=== PATIENT | female | born 1980 | race Hispanic/Latino ===

== ENCOUNTER 2019-02-09 18:00 | Emergency (ER) | payer OTHER | END 2019-02-09 18:34 | disposition home or self-care (01) | LOC: EDH 18:00 | DX: J06.9 Acute upper respiratory infection, unspecified (principal) | CPT/HCPCS: 99281 ==

== ENCOUNTER 2020-09-03 17:25 | Emergency (ER) | payer OTHER ==
[~2020-09-03] VITALS: Ht 157.5 cm; Wt 67.1 kg
[2020-09-03] MEDS ORDERED: 0.9%NACL 1000ML 1,000 ML IV ONE (19:00)
[2020-09-03] MEDS ORDERED: ACETAMINOPHEN 325 MG TAB PO ONE (19:00)
[2020-09-03 20:19] LABS: BASOPHILS % (AUTO) 0.5 % (0.0-5.0); EOSINOPHILS % (AUTO) 0.5 % (0.0-8.0); HEMATOCRIT 36.4 % (36-48); LYMPHOCYTES % (AUTO) 14.3 % (21.0-51.0); MEAN CORPUSCULAR HGB CONC 32.7 g/dL (32.0-36.0); MEAN CORPUSCULAR VOLUME 88.8 fL (79-99); MONOCYTES % (AUTO) 4.6 % (3.0-13.0); NEUTROPHILS % (AUTO) 79.8 % (40.0-77.0); PLATELET COUNT (AUTO) 246 K/uL (130-400); RED CELL DISTRIBUTION WIDTH 13.4 % (11.0-15.5); WHITE BLOOD COUNT (AUTO) 10.5 K/uL (4.8-10.8)
[2020-09-03 20:22] VITALS: BP 89/60
[2020-09-03 21:07] VITALS: BP 119/53
== END 2020-09-03 21:07 | disposition home or self-care (01) ==
LOC: EDH 17:25
DX: O03.9 Complete or unspecified spontaneous abortion without complication (principal); Z3A.01 Less than 8 weeks gestation of pregnancy
CPT/HCPCS: 36415; 76801; 84702; 85025; 86900; 86901; 96360

== ENCOUNTER 2024-03-16 08:30 | Emergency (ER) | payer BC, MEDICAID ==
[~2024-03-16] VITALS: Ht 152.4 cm; Wt 67.1 kg
[2024-03-16 09:10] LABS: ADD UA MICROSCOPIC YES; APPEARANCE,URINE CLEAR (CLEAR); BILIRUBIN,URINE NEGATIVE (NEGATIVE); COLOR,URINE LIGHT-YELLOW (YELLOW); GLUCOSE, URINE (UA) NEGATIVE (NEGATIVE); KETONES,URINE NEGATIVE (NEGATIVE); LEUKOCYTE ESTERASE ,URINE 250 Leu/uL (NEGATIVE); NITRATE,URINE NEGATIVE (NEGATIVE); OCCULT BLOOD,URINE LARGE (NEGATIVE); PH,URINE 6.5 (5.0-8.0); PROTEIN,URINE 30 mg/dL (NEGATIVE); UROBILINOGEN,URINE 0.2 mg/dL (0.2-1.0)
[2024-03-16 09:17] LABS: BACTERIA,URINE FEW /HPF (None Seen); MUCUS,URINE RARE LPF (None Seen); RBC,URINE 26-50 /HPF (0-1); SQUAMOUS EPITHELIAL CELL,UR RARE /HPF (0-2); WBC,URINE 26-50 /HPF (0-1)
--- NOTE | 2024-03-16 09:59 | ERN ---
ED Note History of Present Illness Stated Complaint: DYSURIA Chief Complaint: Painful Urination Time Seen by MD: 08:35 Dictation: 43-year-old female presents to the ED for evaluation of dysuria onset last night. Patient reports frequency, abdominal cramping and nausea, but denies any fevers, vomiting or other associated symptoms at this time. Patient mentioned she took 600 mg of Motrin at 7:00 a.m.. Allergies: Coded Allergies: No Known Allergies (Unverified Allergy, Unknown, 09/03/20) Home Meds Active Scripts Nitrofurantoin Monohyd/M-Cryst (Macrobid 100 mg Capsule) 100 Mg Capsule, 1 CAP PO BID for 7 Days, #14 CAP 0 Refills Prov:EDILSON VANCE MD 03/16/24 Past Medical History Past Medical History: No Pertinent History Surgical History: None LMP: Mar 02, 2024 : 4 Para: 2 Aborts: 1 Review of System Dictation Constitutional: Negative for fever,chills, and weight loss Eyes: Negative for injury, pain,redness, and discharge ENT: Negative for injury,pain or swelling Cardiovascular: Negative for chest pain, palpitations, and edema Respiratory: Negative for shortness of breath, cough, and wheezing, Abdomen/GI: Positive for nausea,Negative for abdominal pain, vomiting, diarrhea, and constipation Back: Negative for injury and pain : Positive for dysuria, frequency MS/Extremity: Negative for injury and deformity Skin: Negative for rash, and discoloration Neuro: Negative for headache, weakness, numbness, tingling, and seizure Psych: Negative for suicide ideation, homicidal ideation, and hallucinations Initial Vital Sign VS Vital Signs Date Time Temp Pulse Resp B/P (MAP) Pulse Ox O2 Delivery O2 Flow Rate FiO2 03/16/24 08:32 97.9 76 16 129/74 98 Room Air 0 03/16/24 08:34 21 Physical Exam Dictation General: awake, alert, NAD Head/Face: Normocephalic, atraumatic Eyes: PERRL, EOMI, vision at baseline ENT: oral cavity clear, TMs clear, no signs of infection Neck: Trachea midline, supple, no nuchal rigidity Cardiovascular: RRR, normal S1/S2, No MRGs, no JVD Respiratory: CTAB, no respiratory distress, No rales or wheezes Abdomen: Soft, mild suprapubic tenderness, non-distended, normal bowel sounds, no guarding or rebound. Skin: Warm, dry, normal turgor, no rash MS/Extremity: Pulses equal, no cyanosis, neurovascular intact, FROM Neuro: COAx4, GCS 15, strength 5/5, CN 2-12 intact, normal cerebellar exam, normal gait, Psych: Normal behavior, mood, and affect normal Results (Laboratory/Radiology) Laboratory/Radiology Laboratory Tests Test 03/16/24 09:05 Urine Color LIGHT-YELLOW (YELLOW) Urine Appearance CLEAR (CLEAR) Urine pH 6.5 (5.0-8.0) Urine Specific [place] 1.020 (1.001-1.031) Urine Protein 30 mg/dL (NEGATIVE) H Urine Glucose (UA) NEGATIVE mg/dL (NEGATIVE) Urine Ketones NEGATIVE mg/dL (NEGATIVE) Urine Occult Blood LARGE (NEGATIVE) H Urine Nitrate NEGATIVE (NEGATIVE) Urine Bilirubin NEGATIVE mg/dL (NEGATIVE) Urine Urobilinogen 0.2 mg/dL (0.2-1.0) Urine Leukocyte Esterase 250 Tessie/uL (NEGATIVE) H Urine RBC 26-50 /HPF (0-1) H Urine WBC 26-50 /HPF (0-1) H Urine Squamous Epithelial Cells RARE /HPF (0-2) Urine Bacteria FEW /HPF (None Seen) Labs Reviewed?: Yes ED Course ED Course Orders Procedure Category Date Status Time Urinalysis Profile LAB 03/16/24 Complete 08:38 Culture Urine TEE 03/16/24 In Process 09:10 Ceftriaxone 1g Vial PHA 03/16/24 Complete (Rocephine 1g Inj) 10:00 Current Medications Medications (Trade) Dose Ordered Sig/[place] Route PRN Reason Start Time Stop Time Status Last Admin Dose Admin Ceftriaxone Sodium (ROCEphine 1G INJ) 1 gm ONCE ONCE IM 03/16/24 10:00 03/16/24 10:01 DC Vital Signs Date Time Temp Pulse Resp B/P (MAP) Pulse Ox O2 Delivery O2 Flow Rate FiO2 03/16/24 08:34 97.9 73 16 129/74 97 Room Air* 0 21 03/16/24 08:32 97.9 76 16 129/74 98 Room Air 0 Medical Decision Making MDM MDM: Differential diagnosis: UTI, abdominal cramping Risk of complication and/or morbidity or mortality of patient management: None Need for hospitalization: Patient does not meet criteria for hospitalization. Need for emergency major/minor surgery: No There are no social concerns with this patient. Prescription drug management Prescriptions will include symptomatic care I independently interpreted the test that were performed, results were reviewed by me and considered findings on radiology if ordered. DX & DISP Disposition: Discharge Departure Impression: Primary Impression: Hemorrhagic cystitis Additional Impression: UTI (urinary tract infection) Condition: Stable Scripts Nitrofurantoin Monohyd/M-Cryst (Macrobid 100 mg Capsule) 100 Mg Capsule 1 CAP PO BID for 7 Days, #14 CAP 0 Refills Prov: EDILSON VANCE MD 03/16/24 Referrals: JOSÉ MIGUEL HARPER Jr., MD (PCP) EDILSON VANCE MD Mar 16, 2024 09:59
[2024-03-16] MEDS ORDERED: NITR100C4 PO (10:02)
[2024-03-16 11:25] VITALS: BP 129/74; PULSE 76; RESP 16; TEMP 97.8; O2SAT 98
[2024-03-16] MEDS: cefTRIAXone 1G VIAL IM ONE (12:08)
== END 2024-03-16 12:14 | disposition home or self-care (01) ==
LOC: EDH 08:30
DX: N30.91 Cystitis, unspecified with hematuria (principal); Z79.899 Other long term (current) drug therapy
CPT/HCPCS: 99284; 87086; 81001; 96372; J0696

== ENCOUNTER 2024-10-09 16:02 | Emergency (ER) | payer BC ==
[~2024-10-09] VITALS: Ht 154.9 cm; Wt 73.3 kg
[~2024-10-09 16:02] MED LIST: NITR100C4 PO
--- NOTE | 2024-10-09 16:18 | EKG ---
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
--- NOTE | 2024-10-09 16:31 | ERN ---
ED Note History of Present Illness Stated Complaint: DIZZY Chief Complaint: Dizzy/Light Headed Time Seen by MD: 16:17 Dictation: SAY 44-YEAR-OLD FEMALE COMING IN TODAY WITH LEFT ANTERIOR CHEST PAIN THAT DOES NOT RADIATE ONSET WAS 5-6 HOURS PRIOR TO ARRIVAL. SHE HAS NO SOB NO JAW PAIN NO ARM PAIN. DENIES ANY HISTORY OF CAD. SHE STATES SHE DOES SEE HER DOCTOR AT [facility] AND HAD LABS DRAWN THREE MONTHS AGO, WAS TOLD HER TRIGLYCERIDES AND HER GLUCOSE WAS ELEVATED. SHE STATES SHE DID NOT FOLLOW UP WITH HER PRIMARY CARE DOCTOR IN [facility]. Allergies: Coded Allergies: No Known Allergies (Unverified Allergy, Unknown, 09/03/20) Home Meds Active Scripts Nitrofurantoin Monohyd/M-Cryst (Macrobid 100 mg Capsule) 100 Mg Capsule, 1 CAP PO BID for 7 Days, #14 CAP 0 Refills Prov:EDILSON VANCE MD 03/16/24 Past Medical History Past Medical History: No Pertinent History Surgical History: None : 4 Para: 2 Aborts: 1 RN Note Reviewed/Agreed w/PFSH: Yes Review of System Dictation CONSTITUTIONAL: NEGATIVE EXCEPT FOR HPI HEAD/FACE: NEGATIVE EXCEPT FOR HPI EENT: NEGATIVE EXCEPT FOR HPI RESPIRATORY: NEGATIVE EXCEPT FOR HPI LEFT ANTERIOR CHEST PAIN GASTROINTESTINAL/ABDOMINAL: NEGATIVE EXCEPT FOR HPI GENITOURINARY: NEGATIVE EXCEPT FOR HPI MUSCULOSKELETAL: NEGATIVE EXCEPT FOR HPI INTEGUMENTARY: NEGATIVE EXCEPT FOR HPI NEUROLOGICAL/PSYCH: NEGATIVE EXCEPT FOR HPI HEMATOLOGIC/LYMPHATIC: NEGATIVE EXCEPT FOR HPI ALL SYSTEMS NEGATIVE, EXCEPT NOTED ABOVE. 13 POINT REVIEW OF SYSTEMS ASSESSED AND ALL NEGATIVE EXCEPT FOR ABOVE. Initial Vital Sign VS Vital Signs Date Time Temp Pulse Resp B/P (MAP) Pulse Ox O2 Delivery O2 Flow Rate FiO2 10/09/24 16:04 97.7 74 16 127/66 97 Room Air 0 10/09/24 16:08 21 Physical Exam Dictation VITAL SIGNS REVIEWED GENERAL APPEARANCE: ALERT, ORIENTED X 3, NO ACUTE DISTRESS, WELL DEVELOPED, NOURISHED. NO PAIN AT THIS HEAD AND FACE: NON-TRAUMATIC. EYES: PERRL, PINK CONJUNCTIVAS, EYELID NO TRAUMA, ANTERIOR CHAMBER WITH ARCUS SENILIS. EARS: PINNAS INTACT AND NO SIGNS OF TRAUMA OR ERYTHEMA EAR CANALS CLEAR AND NO DISCHARGE TM NO ERYTHEMA NOSE: NO DISCHARGE, NO BLEEDING. OROPHARYNX: MOUTH NORMAL, TONGUE PINK, PHARYNX CLEAR,NO ERYTHEMA, TONSILS NO EXUDATES, NO ABSCESSES NOTED, MUCOUS MEMBRANE MOIST NECK: SUPPLE, NON-TENDER, NO THYROMEGALY, NO MASSES, NO JVD, NO BRUITS BREAST:DEFERRED CHEST:NO TENDERNESS, NO CREPITUS, NO PARADOXICAL MOVEMENT, NO RETRACTIONS LUNGS:CLEAR, WELL-VENTILATED, SYMMETRIC, NO RALES, NO WHEEZING, NO RHONCHI, NO STRIDOR, GOOD BREATH SOUNDS BILATERALLY HEART: REGULAR RATE, REGULAR RHYTHM, NO MURMUR, NO GALLOPS VASCULAR: NO PERIPHERAL EDEMA, ABDOMEN: SOFT, POSITIVE BOWEL SOUNDS, NONDISTENDED, NO GUARDING, NONTENDER, NO REBOUND, NO MASSES NO HEPATOMEGALY, NO SPLENOMEGALY, NO DEMARCO'S SIGN, NO HERNIAS. RECTAL: DEFERRED GENITAL: DEFERRED NEUROLOGICAL: NORMAL SPEECH, MOTOR FUNCTION INTACT, SENSORY FUNCTION INTACT MUSCULOSKELETAL: NECK NONTENDER, FULL RANGE OF MOTION, BACK NONTENDER, FULL RANGE OF MOTION, EXTREMITIES: NONTENDER, FULL RANGE OF MOTION SKIN: COLOR PINK, DRY, NO TURGOR, NO RASH, NO LACERATIONS, NO ABRASIONS, NO CONTUSIONS. LYMPHATIC: DEFERRED Results (Laboratory/Radiology) Laboratory/Radiology Laboratory Tests Test 10/09/24 16:26 White Blood Count 10.8 K/uL (4.8-10.8) Red Blood Count 4.34 MIL/uL (4.00-5.50) Hemoglobin 12.6 g/dL (12.0-16.0) Hematocrit 38.6 % (36-48) Mean Corpuscular Volume 88.9 fL (79-99) Mean Corpuscular Hemoglobin 29.0 pg (27.0-33.0) Mean Corpuscular Hemoglobin Concent 32.6 g/dL (32.0-36.0) Red Cell Distribution Width 13.7 % (11.0-15.5) Platelet Count 291 K/uL (130-400) Mean Platelet Volume 11.1 fL (7.5-10.5) H Immature Granulocyte % (Auto) 0.3 % (0-1) Neutrophils (%) (Auto) 69.5 % (40.0-77.0) Lymphocytes (%) (Auto) 21.0 % (21.0-51.0) Monocytes (%) (Auto) 5.6 % (3.0-13.0) Eosinophils (%) (Auto) 3.0 % (0.0-8.0) Basophils (%) (Auto) 0.6 % (0.0-5.0) Neutrophils # (Auto) 7.5 K/uL (1.8-7.7) Lymphocytes # (Auto) 2.3 K/uL (1.0-4.8) Monocytes # (Auto) 0.6 K/uL (0.1-1.0) Eosinophils # (Auto) 0.32 K/uL (0.00-0.70) Basophils # (Auto) 0.06 K/uL (0.00-0.20) Absolute Immature Granulocyte (auto 0.03 K/uL (0-1) Nucleated Red Blood Cells 0.0 % (0.0-0.19) Sodium Level 138 mmol/L (136-145) Potassium Level 3.8 mmol/L (3.5-5.1) Chloride Level 103 mmol/L (101-111) Carbon Dioxide Level 30 mmol/L (21-32) Blood Urea Nitrogen 15 mg/dL (7-18) Creatinine 0.8 mg/dL (0.5-1.0) Glomerular Filtration Rate Calc 93 mL/min (>90) Random Glucose 82 mg/dL (70-105) Total Calcium 8.4 mg/dL (8.5-10.1) L Troponin I High Sensitivity < 4 ng/L (4-50) L Labs Reviewed?: Yes EKG: (+) NSR EKG Comment: EKG NORMAL SINUS RHYTHM/HEART RATE 72/AXIS NORMAL/NO ECTOPY ED Course ED Course Orders Procedure Category Date Status Time 12 Lead Ekg Tracing- EKG 10/09/24 Complete Technical 16:09 Cbc With Differential LAB 10/09/24 Complete 16:24 Troponin I High LAB 10/09/24 Complete Sensitivity 16:24 12 Lead Ekg Tracing- EKG 10/09/24 Logged Technical 16:24 Basic Metabolic Panel LAB 10/09/24 Complete 16:24 Vital Signs Date Time Temp Pulse Resp B/P (MAP) Pulse Ox O2 Delivery O2 Flow Rate FiO2 10/09/24 16:08 97.7 74 16 127/66 97 Room Air* 0 21 10/09/24 16:04 97.7 74 16 127/66 97 Room Air 0 1710/CARDIAC WORKUP COMPLETEL UNREMARKABLE. DISCHARGED HOME WITH ATYPICAL CHEST PAIN AND ANXIETY TOLD TO SEE HER PRIMARY CARE DOCTOR HEART Score Response (Comments) Value History: Low suspicion (0) 0 EKG: Normal 0 Age: < 45yrs (0) 0 Risk Factors: No known risk factors (0) 0 Initial Troponin: Normal limit (0) 0 Total 0 Medical Decision Making MDM MDM: DIFFERENTIAL DIAGNOSIS: ACS/AMI/ELECTROLYTE IMBALANCE/DEHYDRATION/ANXIETY RATIONALE: TESTS CONSIDERED AND ORDERED SECONDARY TO SHARED DECISION MAKING INCLUDE: EKG/LABS PREVIOUS OUTSIDE RECORDS REVIEWED: OLD ER VISITS. RISK OF COMPLICATION AND/OR MORBIDITY OR MORTALITY OF PATIENT MANAGEMENT: NONE MEDICATIONS-PER MEDICATION RECONCILIATION NEED FOR HOSPITALIZATION: PATIENT DOES NOT MEET CRITERIA FOR HOSPITALIZATION. NONE NEED FOR EMERGENCY MAJOR/MINOR SURGERY: NO THERE ARE NO SOCIAL CONCERNS WITH THIS PATIENT. PRESCRIPTION DRUG MANAGEMENT NONE PRESCRIPTIONS WILL INCLUDE SYMPTOMATIC CARE PATIENT'S PRIOR EXTERNAL MEDICAL RECORDS FROM OTHER ER VISITS WERE REVIEWED BY ME INDICATED. PRIOR TESTING AND RESULTS FROM PREVIOUS VISITS WERE REVIEWED. PRIOR TESTS WERE TAKEN INTO ACCOUNT WITH MEDICAL DECISION MAKING AND RESOURCE UTILIZATION, INDEPENDENT HISTORIAN/HISTORIANS WERE USED TO OBTAIN COMPLETE MEDICAL HISTORY. I INDEPENDENTLY INTERPRETED THE TEST THAT WERE PERFORMED, RESULTS WERE REVIEWED BY ME AND CONSIDERED FINDINGS ON RADIOLOGY IF ORDERED. MEDICAL MANAGEMENT AND EXAMINATION INTERPRETATION DISCUSSIONS WERE HAD BY ME WITH OTHER QUALIFIED HEALTHCARE PROFESSIONALS INDICATED FOR THE PATIENT'S CARE. DX & DISP Disposition: Discharge Departure Impression: Primary Impression: Atypical chest pain Additional Impression: Anxiety Condition: Stable Additional Instructions: FOLLOW-UP WITH PRIMARY CARE PROVIDER IN 1 TO 2 DAYS. TAKE MEDICATIONS DIRECTED HERE IN THE EMERGENCY ROOM. OKAY TO CONTINUE HOME MEDICATIONS UNLESS OTHERWISE DISCUSSED DURING YOUR VISIT IN THE EMERGENCY ROOM TODAY. RETURN TO YOUR NEAREST EMERGENCY ROOM IF SYMPTOMS WORSEN OR IF THERE IS NO IMPROVEMENT. CALL 911 IF YOU NEED IMMEDIATE ASSISTANCE. TAKE TYLENOL OR MOTRIN [id number] NEEDED AND IF NO CONTRAINDICATIONS ARE PRESENT. INCREASE ORAL HYDRATION. A WOUND CULTURE OR URINE CULTURE WAS ORDERED HERE IN THE EMERGENCY ROOM DEPARTMENT PLEASE FOLLOW-UP WITH PRIMARY CARE PROVIDER AND ADVISE THEM TO GET REPEAT PORTS FROM OUR FACILITY. IF YOU HAD ANY MAE WRAP/SPLINTS THAT WERE APPLIED HERE, PLEASE DO NOT REMOVE THEM UNTIL YOU SEE YOUR PRIMARY CARE OR SPECIALTY. DIET AND ACTIVITY TOLERATED. FOLLOW UP WITH THE YOUR PRIMARY CARE DOCTOR IN THE NEXT 1-2 DAYS FOR MANAGEMENT. Referrals: JOSÉ MIGUEL HARPER Jr., MD (PCP) Time of Disposition: 17:12 I have reviewed the case, and I agree with, Diagnosis and Plan KERA HAMMOND NP Oct 09, 2024 16:31
[2024-10-09 16:34] LABS: IMMATURE GRANULOCYTE ABSOLUTE 0.03 K/uL (0-1); NUCLEATED RED BLOOD CELLS 0.0 % (0.0-0.19); PLATELET COUNT (AUTO) 291 K/uL (130-400); RED BLOOD CELL COUNT(AUTO) 4.34 MIL/uL (4.00-5.50); RED CELL DISTRIBUTION WIDTH 13.7 % (11.0-15.5); WHITE BLOOD COUNT (AUTO) 10.8 K/uL (4.8-10.8)
[2024-10-09 16:42] LABS: CREATININE 0.8 mg/dL (0.5-1.0); GLOMERULAR FILTR. RATE CALC 93.0 mL/min (>90); GLUCOSE,RANDOM 82.0 mg/dL (70-105); SODIUM SERUM 138.0 mmol/L (136-145); UREA NITROGEN, BLOOD 15.0 mg/dL (7-18)
[2024-10-09 17:19] VITALS: BP 125/65; PULSE 72; RESP 16; TEMP 97.7; O2SAT 97
== END 2024-10-09 17:25 | disposition home or self-care (01) ==
LOC: EDH 16:02
DX: F41.9 Anxiety disorder, unspecified (principal); R07.89 Other chest pain; Z79.899 Other long term (current) drug therapy
CPT/HCPCS: 36415; 80048; 84484; 85025; 93005; 99284